=== PATIENT | female | born 1990 | race Native Hawaiian/Other Pacific Islander ===

== ENCOUNTER 2019-06-25 18:32 | Outpatient (CLI) | payer BC | END 2019-06-25 20:16 | disposition home or self-care (01) | LOC: LAB 18:32 | DX: N39.0 Urinary tract infection, site not specified (principal) | CPT/HCPCS: 87088 ==

== ENCOUNTER 2019-06-27 04:32 | Emergency (ER) | payer BC ==
[~2019-06-27] VITALS: Ht 162.6 cm; Wt 56.7 kg
[2019-06-27] MEDS ORDERED: LEVO0.0218 PO (04:45)
[2019-06-27 06:01] LABS: PLATELET COUNT 243 K/uL (152-353)
[2019-06-27 06:15] LABS: POTASSIUM 4.8 mmol/L (3.6-5.2)
[2019-06-27 06:28] VITALS: BP 125/72; TEMP 98.1
== END 2019-06-27 06:28 | disposition home or self-care (01) ==
LOC: ED 04:32
PROVIDERS: Emergency Medicine
DX: N39.0 Urinary tract infection, site not specified (principal); R10.814 Left lower quadrant abdominal tenderness
CPT/HCPCS: 36415; 80053; 81000; 81025; 85027; 87088; 96360; 96375; 99284; J1885

== ENCOUNTER 2022-05-02 11:34 | Emergency (ER) | payer OTHER ==
[~2022-05-02] VITALS: Ht 162.6 cm; Wt 56.7 kg
[~2022-05-02 11:34] MED LIST: LEVO0.0218 PO
[2022-05-02 11:40] VITALS: TEMP 98.4
[2022-05-02 12:01] LABS: PLATELET COUNT 221 K/uL (152-353)
[2022-05-02 12:04] LABS: POTASSIUM 3.7 mmol/L (3.6-5.2)
[2022-05-02] MEDS ORDERED: ONDA4TAB3 PO (14:06)
[2022-05-02 14:45] VITALS: BP 104/58
== END 2022-05-02 14:45 | disposition home or self-care (01) ==
LOC: ED 11:34
PROVIDERS: Emergency Medicine
DX: R11.2 Nausea with vomiting, unspecified (principal); R10.31 Right lower quadrant pain
CPT/HCPCS: 36415; 80053; 81002; 81025; 82150; 83690; 85027; 93005; 99283; Q9963